=== PATIENT | female | born 1945 ===

== ENCOUNTER 2024-01-24 07:40 | Day surgery (SDC) | payer OTHER ==
[2024-01-24] MEDS ORDERED: MIDAZOLAM HCL 2 MG/2 ML VIAL IV ONE (12:30)
[2024-01-24] MEDS ORDERED: DIPHENHYDRAMINE HCL 50 MG/ML VIAL 1ML IV ONE (12:30)
[2024-01-24] MEDS ORDERED: fentaNYL CITRATE 50 MCG/ML AMPUL IV PUSH ONE (12:30)
[2024-01-24] MEDS ORDERED: ONDANSETRON HCL 2 MG/ML VIAL IV ONE (12:30)
== END 2024-01-24 13:55 | disposition home or self-care (01) ==
LOC: AMB-ENDOS 07:40
PROVIDERS: ATTEND Colon & Rectal Surgery
DX: K63.5 Polyp of colon (principal); K62.1 Rectal polyp; K57.30 Diverticulosis of large intestine without perforation or abscess without bleeding; K57.32 Diverticulitis of large intestine without perforation or abscess without bleeding

== ENCOUNTER 2024-06-14 10:30 | Inpatient (IN) | payer OTHER ==
[~2024-06-14] VITALS: Ht 152.4 cm; Wt 72.6 kg
[2024-06-14] MEDS ORDERED: ATENOLOL25 MG (12:20)
[2024-06-14] MEDS ORDERED: ATACAND16 MG PO (12:20)
[2024-06-14] MEDS ORDERED: ZOCOR20 MG PO (12:20)
[2024-06-14] MEDS ORDERED: NEURONTIN300 MG (12:21)
[2024-06-14] MEDS ORDERED: CENTRUM ADULT80 MCG (12:22)
[2024-06-14] MEDS ORDERED: PLETAL (12:23)
[2024-06-14 12:28] VITALS: BP 127/79
[2024-06-14 14:59] LABS: RH POSITIVE
[2024-06-21] MEDS ORDERED: CEFTRIAXONE SODIUM 2,000 MG VIAL IV ONE (10:00)
[2024-06-21] MEDS ORDERED: METRONIDAZOLE/SODIUM CHLORIDE 500 MG/100 ML PIGGYBACK IV ONE (10:15)
[2024-06-21] MEDS ORDERED: BUPIVACAINE HCL 30 ML VIAL IJ ONE (10:15)
[2024-06-21] MEDS ORDERED: RINGERS SOLUTION,LACTATED 1,000 ML IV SCH (14:30)
[2024-06-21] MEDS ORDERED: OxyCODONE HCL 5 MG TABLET (ROXICODONE) PO PRN (14:30)
[2024-06-21] MEDS ORDERED: MORPHINE SULFATE 4 MG/ML VIAL IV PRN (14:30)
[2024-06-21] MEDS ORDERED: MEPERIDINE HCL 25 MG/ML AMPUL IM PRN (14:30)
[2024-06-21] MEDS ORDERED: ONDANSETRON HCL 2 MG/ML VIAL IV PRN (14:30)
[2024-06-21] MEDS ORDERED: MAGNESIUM CHLORIDE 70 MG TABLET.DR PO NR (14:30)
[2024-06-21] MEDS ORDERED: MORPHINE SULFATE 2 MG/ML CARTRIDGE IV ONE (16:00)
[2024-06-21] MEDS ORDERED: SIMETHICONE 125 MG CAPSULE PO SCH (17:00)
[2024-06-21] MEDS ORDERED: GABAPENTIN 300 MG CAPSULE PO SCH (17:00)
[2024-06-21] MEDS ORDERED: POLYETHYLENE GLYCOL 3350 17 GM BLIST.PACK PO SCH (17:00)
[2024-06-21 17:59] LABS: HEMATOCRIT 41.4 % (36.0-45.00); HEMOGLOBIN 13.3 g/dL (12.0-15.00); MEAN CELL VOLUME 93.3 fL (80.00-100.00); MEAN CORPUSCULAR HGB CONC 32.2 g/dl (32.0-36.0); PLATELET COUNT 306 K/uL (150-450); RED BLOOD COUNT 4.44 M/uL (4.00-6.00); RED CELL DISTRIBUTION WIDTH 13.6 % (11.5-14.5)
[2024-06-21] MEDS ORDERED: ACETAMINOPHEN 500 MG GEL..CAP PO SCH (18:00)
[2024-06-21 18:30] VITALS: BP 97/63; O2SAT 95
[2024-06-21 18:41] LABS: CALCIUM 9.2 mg/dL (8.5-10.1); POTASSIUM 4.55 mEq/L (3.5-5.1)
[2024-06-21 18:45] LABS: ALBUMIN 3.5 gm/dL (3.4-5.0); CREATININE SERUM 0.84 mg/dL (0.55-1.02); GFR 65.74; MAGNESIUM 1.9 mg/dL (1.8-2.4)
[2024-06-21] MEDS ORDERED: FAMOTIDINE/PF 20 MG/2 ML VIAL IV PUSH SCH (21:00)
[2024-06-22 01:28] VITALS: BP 101/61; O2SAT 100
[2024-06-22 08:00] VITALS: BP 111/62; O2SAT 94
[2024-06-22] MEDS ORDERED: SIMVASTATIN 20 MG TABLET PO SCH (09:00)
[2024-06-22] MEDS ORDERED: LACTOBACILLUS ACIDOPHILUS 1 CAP CAP PO SCH (09:00)
[2024-06-22] MEDS ORDERED: CANDESARTAN CILEXETIL 16 MG TABLET PO SCH (09:00)
[2024-06-22] MEDS ORDERED: ATENOLOL 25 MG TABLET PO SCH (09:00)
[2024-06-22 10:03] LABS: HEMATOCRIT 38.4 % (36.0-45.00); HEMOGLOBIN 12.7 g/dL (12.0-15.00); MEAN CELL VOLUME 92.3 fL (80.00-100.00); MEAN CORPUSCULAR HEMOGLOBIN 30.5 pg (27.00-32.0); PLATELET COUNT 266 K/uL (150-450); RED BLOOD COUNT 4.16 M/uL (4.00-6.00); RED CELL DISTRIBUTION WIDTH 13.4 % (11.5-14.5)
[2024-06-22 10:18] LABS: CALCIUM 8.6 mg/dL (8.5-10.1); CREATININE SERUM 0.69 mg/dL (0.55-1.02); GFR 82.5; MAGNESIUM 1.9 mg/dL (1.8-2.4); PHOSPHOROUS 4.3 mg/dL (2.5-4.9); POTASSIUM 4.88 mEq/L (3.5-5.1)
[2024-06-22 16:00] VITALS: BP 107/66; O2SAT 94
[2024-06-22] MEDS ORDERED: ENOXAPARIN SODIUM 40 MG/0.4 ML SYRINGE SUBCUTANEO SCH (17:00)
== END 2024-06-22 18:47 | disposition home or self-care (01) | DRG 336 ==
LOC: O/R 06-21 05:51 → SURH 06-21 07:00
PROVIDERS: ADMIT Colon & Rectal Surgery; ATTEND Colon & Rectal Surgery
PROC: 0DJD8ZZ Inspection of Lower Intestinal Tract, Via Natural or Artificial Opening Endoscopic (ICD-10-PCS; 2024-06-21)
PROC: 0DN84ZZ Release Small Intestine, Percutaneous Endoscopic Approach (ICD-10-PCS; principal; 2024-06-21 07:00)
DX: K57.32 Diverticulitis of large intestine without perforation or abscess without bleeding (principal); K56.51 Intestinal adhesions [bands], with partial obstruction